=== PATIENT | male | born 1985 | race Caucasian/White ===

== ENCOUNTER 2019-11-09 13:29 | Emergency (ER) | payer OTHER ==
[~2019-11-09] VITALS: Ht 175.3 cm; Wt 165.0 kg
[2019-11-09 13:35] VITALS: BP 140/90
[2019-11-09] MEDS ORDERED: KETOROLAC 60MG/2ML VIAL IM ONE (15:00)
== END 2019-11-09 16:25 | disposition home or self-care (01) ==
LOC: ER 13:29
DX: M25.562 Pain in left knee (principal)
CPT/HCPCS: 73562; 96372; 99283; J1885; L1830